=== PATIENT | female | born 1975 | race Caucasian/White ===

== ENCOUNTER 2018-05-02 19:09 | Emergency (ER) | payer SELFPAY ==
[~2018-05-02] VITALS: Ht 167.6 cm; Wt 75.0 kg
[2018-05-02 19:15] VITALS: Ht 167.6 cm; Wt 75.0 kg
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
[2018-05-02] MEDS ORDERED: IBUP-1542 PO (22:52)
[2018-05-02 23:35] VITALS: BP 122/80; PULSE 77; RESP 16
== END 2018-05-02 23:37 | disposition home or self-care (01) ==
LOC: FTE 19:09
DX: S92.335A Nondisplaced fracture of third metatarsal bone, left foot, initial encounter for closed fracture (principal); S92.345A Nondisplaced fracture of fourth metatarsal bone, left foot, initial encounter for closed fracture; V49.49XA Driver injured in collision with other motor vehicles in traffic accident, initial encounter